=== PATIENT | male | born 1955 | race Caucasian/White ===

== ENCOUNTER 2016-05-30 00:26 | Day surgery (SDC) | payer OTHER ==
[~2016-05-30] VITALS: Ht 180.3 cm; Wt 94.0 kg
[2016-05-30] VITALS (20 sets, daily range): BP systolic 125–158; BP diastolic 69–123; PULSE 57–74; RESP 13–19; O2SAT 90–97
[~2016-05-30 00:26] MED LIST: ALPR0.5T8 PO; ASPI-13 PO; ATEN100T PO; ATOR40TA69 PO; CHOL200049 PO; CLOP75TA3 PO; HYDR-4003 PO; HYDR12.5 PO; IBUP800T28 PO; ISOS30TA4 PO; LISI-567 PO; NITR0.4T SL; PARO20TA5 PO
[2016-05-30 06:58] LABS: BASOPHILS % (AUTO) 0.5 % (0-3); EOSINOPHILS % (AUTO) 3.8 % (0-5); Mean Corpuscular Hemoglobin 31.6 pg (27.0-35.0); Mean Corpuscular Volume 93.1 fL (81-100); NEUTROPHILS % (AUTO) 52.7 % (40-74); Platelet Count 272 bil/L (150-400)
[2016-05-30] MEDS ORDERED: FOLI-52 PO (06:58)
[2016-05-30] MEDS ORDERED: BACL10TA PO (06:58)
[2016-05-30] MEDS ORDERED: NICO4GUM7 BC (06:58)
[2016-05-30] MEDS ORDERED: CHOL40003 PO (06:58)
[2016-05-30] MEDS ORDERED: ASPI325T32 PO (06:58)
[2016-05-30] MEDS ORDERED: MECL-114 PO (06:58)
[2016-05-30 07:08] LABS: INR 0.91 ratio
[2016-05-30] MEDS ORDERED: Heparin 5,000 Unit/mL Inj ONE ×2 (07:17→09:17)
[2016-05-30] MEDS ORDERED: 0.9% Sodium Chloride 1,000 ML ONE ×3 (07:17→09:17)
[2016-05-30] MEDS ORDERED: Heparin 1,000 Units/500 mL NS Premix IV ONE (07:17)
[2016-05-30] MEDS ORDERED: fentaNYL-PF 50 mCg/mL 2 mL Inj ONE ×2 (08:30→09:09)
[2016-05-30] MEDS ORDERED: Heparin 1,000 Unit/mL 10 mL Inj ONE (08:53)
[2016-05-30] MEDS ORDERED: Nitroglycerin 50,000 mcg/250 mL D5W Premix IV ONE (09:33)
[2016-05-30] MEDS ORDERED: HYDROcodone-APAP 5-325 mg Tablet PO ONE (10:35)
[2016-05-30] MEDS ORDERED: 0.9% Sodium Chloride 1,000 ML IV PRN (10:43)
[2016-05-30] MEDS ORDERED: 0.9% Sodium Chloride 250 ML IV PRN (10:43)
[2016-05-30] MEDS ORDERED: Ondansetron 2 mg/mL 2 mL Inj IVPUSH PRN (10:45)
[2016-05-30] MEDS ORDERED: HYDROcodone-APAP 5-325 mg Tablet PO PRN (10:45)
[2016-05-30] MEDS ORDERED: ALPRAZolam 0.5 mg Tablet PO PRN (17:05)
--- NOTE | 2016-05-30 18:26 | CS94 ---
[address] [address] DIAGNOSTIC CARDIAC CATHETERIZATION PATIENT: ABHIJIT OBRIEN : 1955 MR#: [id number] ADMIT: 05/30/2016 JOB ID: [id number] SERVICE DATE: 05/30/2016 PROCEDURES PERFORMED: 1. Coronary angiography. 2. IVUS of the right coronary artery. 3. Percutaneous intervention with balloon angioplasty to an occluded right coronary artery. INDICATIONS: This is a 60-year-old man with known coronary disease with progressive anginal symptoms. He presents for urgent assessment by cardiac catheterization. DESCRIPTION OF PROCEDURE: Informed consent was obtained. Patient brought to the catheterization laboratory. Bilateral groins prepped and draped in sterile fashion. The right femoral artery was anesthetized with lidocaine. Using modified Seldinger technique and a micropuncture kit access was obtained and a 5-Bangladeshi sheath was advanced. Next, a 5-Bangladeshi JL4 catheter was advanced over a wire and used to cannulate the left coronary artery and angiographic views obtained. This catheter was removed and a 5-Bangladeshi JR4 catheter was advanced over a wire and used to cannulate the right coronary and angiographic views obtained. Given findings of an occluded and collateralized right coronary artery and an area of a prior stent stenosis an intervention was planned. An angiographic view of the right femoral access site was obtained prior to sizing up to a 6-Bangladeshi sheath. Next, a 6-Bangladeshi JR4 guide was advanced over a wire and used to cannulate the left and right coronary artery. Heparin was given for anticoagulation. A 2 x 12 mm OTW balloon was requested but was not available. Thus, a Prowater wire was advanced through a 1.5 x 12 mm OTW balloon. This was ultimately advanced to the distal artery. The balloon was advanced distally. An injection was performed to confirm that the balloon and wire were intraluminal. Next, the Prowater wire was removed and a long BMW wire was advanced through the balloon and distal The balloon was pulled back and inflated in the area of occlusion to nominal pressures as high as 12 atmospheres. This balloon was then taken out and a 2.5 x 12 mm Euphora balloon was advanced in the area of occlusion and this was inflated in the range of 9-12 atmospheres. IVUS was advanced into the area of interest. This was advanced as the distal conduit segment revealed this involved a long area of stenting. The stent appeared to be in the range of 2.8-3 mm in terms of the diameter. All areas of stenting that were assessed revealed a diameter close to 3 mm. The IVUS was then removed and a 3 x 20 mm balloon was advanced in the area of interest. This was inflated in the range of 9-11 atmospheres throughout the area of interest. Followup angiographic views after balloon inflation reveal an excellent angiographic result with no significant residual stenosis, no evidence of dissection. At one point there appeared to be a small amount of thrombus in the area of previous occlusion but after balloon dilation in the setting of anticoagulation this resolved. Followup angiographic views with intracoronary nitroglycerin were obtained and the case was ended. The wire and guide was removed. The sheath was sutured in place with plans for removal at a later time. FINDINGS: CORONARIES:: 1. Left main: The left main has no significant disease. 2. Circumflex artery: This vessel is somewhat diffusely diseased, giving rise to a first obtuse marginal branch which has no obstructive disease. 3. Left anterior descending artery: This vessel has an area of stenting which has some mild in-stent restenosis. It has a diagonal branch which supplies an intermediate distribution which has no significant stenosis. There is evidence for left to right collaterals filling the distal right coronary artery bed. 4. Right coronary artery: This vessel is occluded in its mid segment. As noted, the lesion was ultimately crossed. Anticoagulation was used to achieve a therapeutic ACT. Multiple balloon dilations starting with a 1.5, [id number] balloon followed by a 2.5 and ultimately a 3 mm balloon were chosen to treat the vessel. IVUS was also used to assess the area to achieve optimal dilation. This did result in a very good angiographic result, with no significant stenosis, no dissection, and brisk flow in the artery. MEDICATIONS: For medications given during the case, please see hospital laboratory technician records for conscious sedation. The patient was given heparin to achieve therapeutic anticoagulation. He was also given 600 mg of Plavix and a ReoPro bolus x1 at the end of the case. IMPRESSION: 1. No evidence for obstructive disease affecting the left anterior descending, the left main, or circumflex artery. 2. Evidence for what is likely a subacutely occluded right coronary artery in an area of previous stenting with evidence for left to right collateralization. This was successfully revascularized and balloon angioplasty alone was performed given this occlusion occurred in the area of prior drug-eluting stents. 3. Successful intravascular ultrasound of the right coronary artery. ARMIDA
--- NOTE | 2016-05-30 19:19 | NUR ---
Arrived to unit Pt arrived to [facility] room 2029 at ~1530 from [facility]. Pt's groin site stable, A&Ox3, VSS on RA. Pt reporting pain 6/10 in neck upon arrival, given PRN vicodin, Pt reported as effective. Pt off bedrest at 1730, Pt tolerated well/steady on feet, and groin site unchanged when reassessed after ambulation.
[2016-05-30] MEDS ORDERED: PARoxetine 20 mg Tablet PO SCH (21:00)
[2016-05-31 04:03] VITALS: BP 151/98; PULSE 66; RESP 14; O2SAT 94
[2016-05-31 05:36] LABS: Mean Corpuscular Hemoglobin 31.1 pg (27.0-35.0); Mean Corpuscular Volume 92.8 fL (81-100)
--- NOTE | 2016-05-31 06:17 | NUR ---
NOC PT medicate with xanax at HS per request for anxiety. PT takes it at home. SLept well t/o the night. Pt assessment benign. R groin procedural site c/d/i. No drainage. No hematoma. Palpable pulses. PT reports that site is a little tender to touch. He is up ad deny to BR. Eager for d.c today. B/P was a little high this am 150/90 range. Will ctm.
[2016-05-31 08:00] VITALS: PULSE 58
[2016-05-31 09:09] VITALS: BP 137/66; PULSE 66; RESP 16; O2SAT 96
--- NOTE | 2016-05-31 11:13 | NUR ---
Discharge Patient denies pain, VSS. R groin site soft, non tender, no signs of bruising or bleeding. Dressing C/D/I. Discharge instruction printed and reviewed verbally with patient. IVs DC'd intact.Patient ambulated off unit with all personal belongings and discharged home accompanied by his .
--- NOTE | 2016-06-02 00:32 | DIS ---
[address] [address] DISCHARGE SUMMARY PATIENT: ABHIJIT OBRIEN : 1955 MR#: [id number] ADMIT: 05/30/2016 JOB ID: [id number] DIS: 05/31/2016 ADMISSION DIAGNOSIS: Unstable angina. PROCEDURES PERFORMED: 1. Cardiac catheterization with percutaneous intervention to the right coronary artery 2. Coronary angiography. BRIEF HISTORY OF PRESENT ILLNESS: The patient is a 60-year-old man with known coronary disease with a history of a high-grade stenosis which was in-stent restenosis treated back in 2013. He presented with accelerated anginal symptoms and was admitted for urgent coronary angiography. As noted, the patient was taken to the cardiac radiographer cardiac catheterization. The right coronary artery was now occluded with collateralization. The antegrade pathway was opened with percutaneous intervention. The patient was put back on Plavix, along with aspirin, and he did very well without any chest pain or arrhythmias. On the day of discharge, his blood pressure is 137/66, heart rate is 66, he is afebrile. Sats are 96% on room air. Telemetry shows no evidence of arrhythmias. General, his head and neck exam: Normocephalic, atraumatic. Neck: No obvious JV distention. Heart exam: Regular rate and rhythm without murmurs, gallops, rubs appreciated. Lungs clear. Abdomen is soft. Groin site is soft, nontender. Extremities: Warm with good distal pulses. Skin without breakdown appreciated. Neurologic: Alert and oriented x3. LABORATORIES: Show white count 9, H and H 13.9 and 41.5, platelets stable at 244,000. Sodium 141, chloride and bicarb 103 and 24, respectively. BUN and creatinine 17 and 1.01. Triglycerides 391, but LDL at 70 and HDL low. DISCHARGE MEDICATIONS: Include Plavix, aspirin, statin, atenolol, losartan. He will also resume his hydrochlorothiazide. FOLLOW UP: He will follow up with Dr. Dias in approximately one week. TIME SPENT: Please note I spent over 30 minutes discussing the ramifications of this diagnosis, his limitations after the cardiac catheterization, and I urged him to continue on his path to smoking cessation. ARMIDA
== END 2016-05-31 12:37 | disposition home or self-care (01) ==
LOC: SOUO 00:26 → EDSTATUS 14:35 → PCC 15:56 → UNDOADMIN 15:56 → PCC 15:56 → SOUO 05-31 12:37
PROVIDERS: ATTEND Internal Medicine
DX: T82.855A Stenosis of coronary artery stent, initial encounter (principal); I25.110 Atherosclerotic heart disease of native coronary artery with unstable angina pectoris; E78.5 Hyperlipidemia, unspecified; K21.9 Gastro-esophageal reflux disease without esophagitis; I10 Essential (primary) hypertension; Z82.49 Family history of ischemic heart disease and other diseases of the circulatory system; I73.00 Raynaud's syndrome without gangrene; F17.210 Nicotine dependence, cigarettes, uncomplicated; Z79.82 Long term (current) use of aspirin; Y84.8 Other medical procedures as the cause of abnormal reaction of the patient, or of later complication, without mention of misadventure at the time of the procedure
CPT/HCPCS: 36415; 80048; 80061; 85025; 85027; 85610; 92920; 92978; 93005; 93454; 99152; 99153; C1725; C1753; C1769; C1887; C1894; J1200; J1644; J2060; J2250; J3010; J7030; Q9967